=== PATIENT | female | born 2000 | race African-American/Black ===

== ENCOUNTER 2024-12-05 09:23 | Outpatient (OUT) | payer BC, SELFPAY ==
--- OUTSIDE RECORDS SUMMARY | 2024-12-05 08:40 | XMS_ITS | Encounter Summary ---
Author Organization [facility] Address [address] [place] [address] Care Team Providers Care Plant Security Guard Name Role Phone Mukul Dsouza DO Unavailable Reason for Visit * Reason Comments Infertility Pt present today to discuss fertility. Encounter Details Date Type Department Care Team (Late st Contact Info) Description 12/05/2024 8:40 AM EDT Office Visit [facility] [address] [place] [address] Mukul Dsouza DO [address] [facility] [address] [place], [facility]11 Female infertility; PCOS (polycystic ovarian syndrome); Abnormal uterine bleeding (AUB) Social History Tobacco Use Types Packs/Day Years Used Date Smoking Tobacco: Never Smokeless Tobacco: Never Alcohol Use Standard Drinks/Week Comments Yes 0 (1 standard drink = 0.6 oz pur e alcohol) Comments No Sex and Gender Information Value Date Recorded Sex Assigned at Not on file Legal Sex Female 1:34 PM EST Gender Identity Not on file Sexual Orientation Not on file documented as of this encounter Last Filed Vital Signs Vital Sign Reading Time Taken Comments Blood Pressure 122/74 12/05/2024 8:33 AM EDT Pulse - - Temperature - - Respiratory Rate - - Oxygen Saturation - - Inhaled Oxygen Concentration - - Weight 96.6 kg (213 lb) 12/05/2024 8:33 AM EDT Height 170.2 cm (5' 7 ) 12/05/2024 8:33 AM EDT Body Mass Index 33.36 12/05/2024 8:33 AM EDT documented in this encounter Plan of Treatment Upcoming Encounters Date Type Department Care Team (Late st Contact Info) Description 12/19/2024 8:00 AM EDT Ancillary Procedure [facility] [address] [place] [address] [place] [id number] 04/09/2025 9:50 AM EST Office Visit [facility] [address] [place] [id number] Mukul Dsouza DO [address] [place] [address] [place] [address] Scheduled Orders Name Type Priority Associated Diagnoses Orde r Schedule hCG, quantitative, Lab Routine PCOS (polycystic ovarian syndrome) Abnormal uterine bleeding (AUB) Ordered: 12/05/2024 TSH Lab Routine PCOS (polycystic ovarian syndrome) Abnormal uterine bleeding (AUB) Ordered: 12/05/2024 T4, free Lab Routine PCOS (polycystic ovarian syndrome) Abnormal uterine bleeding (AUB) Ordered: 12/05/2024 CBC and differential Lab Routine PCOS (polycystic ovarian syndrome) Abnormal uterine bleeding (AUB) Ordered: 12/05/2024 Follicle stimulating hormone Lab Routine PCOS (polycystic ovarian syndrome) Abnormal uterine bleeding (AUB) Ordered: 12/05/2024 Luteinizing hormone Lab Routine PCOS (polycystic ovarian syndrome) Abnormal uterine bleeding (AUB) Ordered: 12/05/2024 Hemoglobin A1c Lab Routine Abnormal uterine bleeding (AUB) Ordered: 12/05/2024 DHEA-sulfate Lab Routine PCOS (polycystic ovarian syndrome) Abnormal uterine bleeding (AUB) Ordered: 12/05/2024 DHEA Lab Routine PCOS (polycystic ovarian syndrome) Abnormal uterine bleeding (AUB) Expected: 12/05/2024 (Approximate), Expires: 12/05/2025 US Pelvis w/ TV Imaging Routine PCOS (polycystic ovarian syndrome) Abnormal uterine bleeding (AUB) Expected: 12/05/2024, Expires: 12/05/2025 Antimullerian hormone (AMH) Lab Routine Abnormal uterine bleeding (AUB) Expected: 12/05/2024 (Approximate), Expires: 12/05/2025 documented as of this encounter Visit Diagnoses Diagnosis Female infertility Female infertility of unspecified origin PCOS (polycystic ovarian syndrome) Polycystic ovaries Abnormal uterine bleeding (AUB) documented in this encounter Care Teams Plant Security Guard Relationship Specialty Start Date End Date Mukul Dsouza DO [address] [place] [address] [place] [address] PCP - Chang [employer] 11/02/24 documented as of this encounter
--- OUTSIDE RECORDS SUMMARY | 2024-12-05 09:29 | XMS_ITS | Encounter Summary ---
Author Organization [facility] Address [address] [place] [address] Care Team Providers Care Social Worker Name Role Phone Mukul Dsouza DO Unavailable Encounter Details Date Type Department Care Team (Latest Contact Info) Description 11/29/2024 Travel Social History Tobacco Use Types Packs/Day Years Used Date Smoking Tobacco: Never Smokeless Tobacco: Never Alcohol Use Standard Drinks/Week Comments Yes 0 (1 standard drink = 0.6 oz pur e alcohol) Comments Unknown Sex and Gender Information Value Date Recorded Sex Assigned at Not on file Legal Sex Female 1:34 PM EST Gender Identity Not on file Sexual Orientation Not on file documented as of this encounter Plan of Treatment Upcoming Encounters Date Type Department Care Team (Late st Contact Info) Description 12/19/2024 8:00 AM EDT Ancillary Procedure [facility] [address] [place] [address] 04/09/2025 9:50 AM EST Office Visit [facility] [address] [place] [address] Mukul Dsouza DO [address], [facility]11 documented as of this encounter Visit Diagnoses Not on filedocumented in this encounter Care Teams Social Worker Relationship Specialty Start Date End Date Mukul Dsouza DO [address], [facility]11 DOROTHY - [employer] 11/02/24 documented as of this encounter
--- OUTSIDE RECORDS SUMMARY | 2024-12-05 09:29 | XMS_ITS | Encounter Summary ---
Author Organization [facility] Address [address] [place] [address] Care Team Providers Care Window Clerk Name Role Phone Mukul Dsouza DO Unavailable Encounter Details Date Type Department Care Team (Late Contact Info) Description 12/05/2024 Bamboo flowsheet [facility] [address] [place] [address] [place] [address] Mukul Dsouza DO [address] [place] [address] Donnie Tim, [place] [address] Social History Tobacco Use Types Packs/Day Years [...] Encounters Date Type Department Care Team (Late Contact Info) Description 12/19/2024 8:00 AM EDT Ancillary Procedure [facility] [place] [address] 04/09/2025 9:50 AM EST Office Visit [facility] [place] [address] Mukul Dsouza DO [address], [facility]11 documented as of this encounter Visit Diagnoses Not on filedocumented in this encounter Care Teams Window Clerk Relationship Specialty Start Date End Date Mukul Dsouza DO [address] [place] [address] [place] [address] PCP - Chang [employer] 11/02/24 documented as of this encounter
--- OUTSIDE RECORDS SUMMARY | 2024-12-05 09:29 | XMS_ITS | Patient Health Record ---
Author Organization [facility] vices Address [address] [place], [place] [id number] Care Team Providers Care Spring Setter Name Role Phone Theresa Castro [phone] Allergies No Known Allergies Reason For Referral No Information Medications Medication SIG (Take, Route, Fr equency, Duration) Notes Start Date End Date Status metroNIDAZOLE 500 MG 1 tablet Orally two times a day; Duration: 7 days 06/15/2023 Active Social History Tobacco Use: Social History Observation Description Date Details (start date - stop date) Never Smoker NA - NA Sex Assigned At : Social History Observation Description Sex Assigned At Female Tobacco Use/Smoking Question Answer Notes Tobacco use: nonsmoker patient enter ed data CAGE-AID Questionnaire (2018 Edition) Question Answer Notes Have you ever felt that you ought to cut down on your drinking or drug use? No patient entered data Have people annoyed you by c riticizing your drinking or drug use? No patient entered data Have you ever felt bad or gu ilty about your drinking or drug use? No patient entered data Have you ever had a drink or used drugs first thing in the morning to steady your nerves or to get rid of a hangover? No patient entered data CAGE-AID Score 0 Interpretation Negative PRAPARE Question Answer Notes Date Completed/Updated: 06/10/2023 anand nt entered data What is your current housing situation? I have housing patient entered data Are you worried about losing your housing? No patient entered data What is the highest level of school that you have finished? High school diploma or GED patient entered data What is your current work situation? [employer] patient entered data In the past year, have you o r any family members you live with been unable to get any of the following when it was really needed? Check all that apply I do not have problems meeting my needs Has lack of transportation k ept you from medical appointments, meetings, work or from getting things needed for daily living? No How often do you see or talk to people that you care about and feel close to? (For example: talking to friends on the phone, visiting friends or family, going to alevism or club meetings) 1 or 2 times a week patient entered data How stressed are you? Stress is when someone feels tense, nervous, anxious, or can't sleep at night because their mind is troubled Very much patient entered data Are you a refugee? No patient en tered data What country are you from? [place] raj lam entered data Do you feel physically and emotionally safe where you currently live? Yes patient entered data In the past year, have you b een afraid of your partner or ex-partner? No patient entered data PRAPARE Score: 6 Problems Problem Type SNOMED Code ICD Code Onset Dates Problem Status W/U Status Risk Notes Problem Viral screening (947240120) Encounter for screening for other viral diseases (Z11.59) Active confirmed Problem Severe acute respiratory syndrome coronavirus 2 (SARS-CoV-2) not detected (Z20.822) Active confirmed Description :COVID-19 virus not detected Plan Of Treatment No Information Insurance Providers Payer Name Payer Address Payer Phone Subscriber Number Group Number Insured Name Patient Relationship to Insured Coverage Start Date Coverage End Date COVID19 Uninsured Testing Fund [employer] Cares Act Provider [address] [address] [place], [place] [id number] Philly Blanca Self - patient is the insured 0 0 Medical (General) History Surgical History Surgery Date(Month/Year) R hand ring finger surgery ( got shot) 0 08/2022 wisdom teeth removal
--- OUTSIDE RECORDS SUMMARY | 2024-12-05 09:29 | XMS_ITS | Clinical Summary ---
Author Organization [facility] Address [id number] [address] [place] [address] Care Team Providers Care Salesforce Business Analyst Name Role Phone No Pcp, No Pcp Primary Care Provider Unavailabl e Allergies No known active allergies Medications ibuprofen (MOTRIN) 800 mg tablet Take 1 tablet (800 mg total) by mouth 3 (three) times a day. 21 tablet 4 Active acetaminophen (TYLENOL EXTRA STRENGTH) 500 mg tablet Take 2 tablets (1,000 mg total) by mouth every 6 (six) hours as needed for pain. 30 tablet 4 Active ondansetron ODT (ZOFRAN ODT) 4 mg disintegrating tablet Dissolve 1 tablet (4 mg total) on tongue every 8 (eight) hours as needed for nausea for up to 10 doses. 10 tablet 5 Active Active Problems No known active problems Immunizations Immunization Administration Dates Next Due Tdap 09/16/2022 Social History Tobacco Use Types Packs/Day Years Used Date Smoking Tobacco: Never Smokeless Tobacco: Never Tobacco Cessation:Counseling Given: Not Answered Alcohol Use Standard Drinks/Week Comments Yes 0 (1 standard drink = 0.6 oz pur e alcohol) OCCASSIONALLY Childcare Answer Date Recorded Childcare Unknown 09/08/2018 Employment Answer Date Recorded Employment Unknown 09/08/2018 Hunger Screening Answer Date Recorded Within the past 12 months we worried whether our food would run out before we got money to buy more. Never True 04/23/2024 Within the past 12 months th e food we bought just didn't last and we didn't have money to get more. Never True 04/23/2024 Purpose - Life Answer Date Recorded Purpose and direction in life Unknown Comments No Sex and Gender Information Value Date Recorded Sex Assigned at Not on file Legal Sex Female 4:33 PM EDT Gender Identity Not on file Sexual Orientation Not on file Last Filed Vital Signs Vital Sign Reading Time Taken Comments Blood Pressure 91/60 04/23/2024 8:50 AM EST Pulse 83 04/23/2024 8:50 AM EST Temperature 36.7 C (98 F) 04/23/2024 8:50 AM EST Respiratory Rate 20 04/23/2024 8:50 AM EST Oxygen Saturation 97% 04/23/2024 8:50 AM EST Inhaled Oxygen Concentration - - Weight 99.8 kg (220 lb) 04/23/2024 8:50 AM EST Height 170.2 cm (5' 7 ) 04/23/2024 8:50 AM EST Body Mass Index 34.46 04/23/2024 8:50 AM EST Plan of Treatment Health Maintenance Due Date Last Done Comments Depression Screening 2010 Adult BMI Follow Up Plan 2016 Pap Smear 2019 Influenza Vaccine 11/27/2024 Adult BMI Screening 04/23/2025 04/23/2024 Tobacco Screening 04/23/2025 04/23/2024 DTaP,Tdap and Td Vaccines (2 - Td or Tdap) 09/16/2032 09/16/2022 Medical Devices Not on file Insurance Care Teams Salesforce Business Analyst Relationship Specialty Start Date End Date No Pcp, [place] [address] PCP - General Family Medicine 09/14/19
--- OUTSIDE RECORDS SUMMARY | 2024-12-05 09:29 | XMS_ITS | Clinical Summary ---
Author Organization [facility] Address [address] [place] [address] Care Team Providers Care Engraver Picture Name Role Phone Mukul Dsouza DO Unavailable Allergies No known active allergies Medications metFORMIN XR (Glucophage-XR) 500 MG 24 hr tabletIndication s:PCOS (polycystic ovarian syndrome) Take 1 tablet (500 mg) by mouth in the evening. Take with meals Do not crush, chew, or split. 30 tablet 11 12/05/2024 Active Encounters Date Type Department Care Team Description 12/05/2024 8:40 AM EDT Office Visit [facility] [address] [place] [address] [place] [address] Mukul Dsouza DO Female infertility; PCOS (polycystic ovarian syndrome); Abnormal uterine bleeding (AUB) 12/05/2024 Bamboo flowsheet [facility] [address] [place] [address] [place] [address] Mukul Dsouza DO 11/29/2024 Travel from Last 3 Months Social History Tobacco Use Types Packs/Day Years [...] Pressure 122/74 12/05/2024 8:33 AM EDT Pulse 76 03/15/2023 1:40 PM EST Temperature 36.5 C (97.7 F) 03/15/2023 1:40 PM EST Respiratory Rate 18 03/15/2023 1:40 PM EST Oxygen Saturation 97% 03/15/2023 1:40 PM EST Inhaled Oxygen Concentration - - Weight 96.6 kg (213 lb) 12/05/2024 8:33 AM EDT Height 170.2 cm (5' 7 ) 12/05/2024 8:33 AM EDT Body Mass Index 33.36 12/05/2024 8:33 AM EDT Plan of Treatment Upcoming Encounters Date Type Department Care Team (Late st Contact Info) Description 12/19/2024 8:00 AM EDT Ancillary Procedure [facility] [place] [id number] 04/09/2025 9:50 AM EST Office Visit [facility] [place] [address] Mukul Dsouza DO [address] [place] [address] Health Maintenance Due Date Last Done Comments Influenza Vaccine (#1) 2024 Insurance Care Teams Engraver Picture Relationship Specialty Start Date End Date Mukul Dsouza DO [address] [place] [address] [place] [address] PCP - Sparkill [employer] 11/02/24
[2024-12-05 09:56] LABS: Hematocrit 39.5 % (36.0-48.0); Hemoglobin 13.2 g/dL (12.0-16.0); Immature Granulocytes Abs Auto 0.01 10^3/uL (0.00-0.03); Immature Granulocytes Pct Auto 0.1 % (0.0-0.5); Lymphocytes Absolute Auto 1.8 10^3/uL (1.2-3.8); Mean Corpuscular HGB Conc 33.4 g/dL (29.9-35.2); Mean Corpuscular Hemoglobin 26.9 pg (26.7-34.0); Mean Corpuscular Volume 80.4 fL (81.0-99.0); Platelet Count 355 10^3/uL (150-450); Red Blood Count 4.91 10^6/uL (4.20-5.40); White Blood Count 7.6 10^3/uL (4.0-11.0)
[2024-12-05 11:29] LABS: Thyroid Stimulating Hormone 1.106 uIU/mL (0.358-3.740)
[2024-12-06 04:11] LABS: FSH 5.4 mIU/mL (.)
[2024-12-11 22:07] LABS: DHEA, Serum 412 ng/dL (31-701)
== END 2024-12-05 09:24 | disposition home or self-care (01) ==
PROVIDERS: Visit Provider Obstetrics & Gynecology
DX: E28.2 Polycystic ovarian syndrome (principal); N93.9 Abnormal uterine and vaginal bleeding, unspecified
CPT/HCPCS: 36415; 82397; 82626; 82627; 83001; 83002; 83036; 84439; 84443; 84702; 85025